=== PATIENT | female | born 1955 | race Native Hawaiian/Other Pacific Islander ===

== ENCOUNTER 2019-06-26 12:57 | Outpatient (CLI) | payer OTHER | END 2019-06-26 21:29 | disposition home or self-care (01) | LOC: US 12:57 | DX: N18.3 Chronic kidney disease, stage 3 (moderate) (principal) ==

== ENCOUNTER 2021-03-29 13:43 | Outpatient (CLI) | payer OTHER | END 2021-03-29 21:46 | disposition home or self-care (01) | LOC: RAD 13:43 | PROVIDERS: ATTEND Physician Assistant | DX: M25.551 Pain in right hip (principal) ==

== ENCOUNTER 2021-05-07 08:08 | Outpatient (CLI) | payer OTHER ==
[2021-05-07 08:28] LABS: PLATELET COUNT 265 K/uL (152-353)
== END 2021-05-07 19:16 | disposition home or self-care (01) ==
LOC: RAD 08:08
PROVIDERS: ATTEND Physician Assistant
DX: R10.2 Pelvic and perineal pain (principal); M54.5 Low back pain; N18.31 Chronic kidney disease, stage 3a; E11.22 Type 2 diabetes mellitus with diabetic chronic kidney disease
CPT/HCPCS: 36415; 80053; 81000; 82330; 82570; 83036; 83735; 83970; 84100; 84155; 84439; 84443; 85027

== ENCOUNTER 2021-08-27 08:02 | Outpatient (CLI) | payer OTHER ==
[2021-08-27 08:22] LABS: PLATELET COUNT 254 K/uL (152-353)
[2021-08-27 09:13] LABS: POTASSIUM 4.7 mmol/L (3.6-5.2)
== END 2021-08-27 22:59 | disposition home or self-care (01) ==
LOC: LABW 08:02
PROVIDERS: ATTEND Internal Medicine
DX: N18.31 Chronic kidney disease, stage 3a (principal); E11.22 Type 2 diabetes mellitus with diabetic chronic kidney disease
CPT/HCPCS: 36415; 80053; 81000; 82330; 82570; 83036; 83735; 83970; 84100; 84155; 84439; 84443; 85027

== ENCOUNTER 2021-11-19 08:05 | Outpatient (CLI) | payer OTHER | END 2021-11-19 20:47 | disposition home or self-care (01) | LOC: LABW 08:05 | PROVIDERS: ATTEND Internal Medicine | DX: N18.31 Chronic kidney disease, stage 3a (principal); E11.9 Type 2 diabetes mellitus without complications | CPT/HCPCS: 36415; 82330; 82570; 83036; 83735; 83970; 84100; 84156 ==

== ENCOUNTER 2022-04-05 09:11 | Outpatient (CLI) | payer OTHER ==
[2022-04-05 09:35] LABS: PLATELET COUNT 247 K/uL (152-353)
[2022-04-05 10:58] LABS: POTASSIUM 5.3 mmol/L (3.6-5.2)
== END 2022-04-05 21:34 | disposition home or self-care (01) ==
LOC: LABW 09:11
PROVIDERS: ATTEND Internal Medicine
DX: N18.31 Chronic kidney disease, stage 3a (principal); R82.998 Other abnormal findings in urine
CPT/HCPCS: 36415; 80053; 81002; 81015; 82043; 82306; 82330; 83735; 83970; 84100; 85027; 87086; 87088

== ENCOUNTER 2022-06-27 08:06 | Outpatient (CLI) | payer OTHER ==
[2022-06-27 08:29] LABS: PLATELET COUNT 237 K/uL (152-353)
== END 2022-06-27 19:37 | disposition home or self-care (01) ==
LOC: LABW 08:06
PROVIDERS: ATTEND Internal Medicine
DX: E11.22 Type 2 diabetes mellitus with diabetic chronic kidney disease (principal); N18.31 Chronic kidney disease, stage 3a
CPT/HCPCS: 36415; 80053; 82330; 82570; 83036; 83735; 83970; 84100; 84156; 84439; 84443; 85027

== ENCOUNTER 2022-09-23 08:35 | Outpatient (CLI) | payer OTHER ==
[2022-09-23 09:08] LABS: PLATELET COUNT 253 K/uL (152-353)
[2022-09-23 09:28] LABS: POTASSIUM 4.2 mmol/L (3.6-5.2)
== END 2022-09-23 19:50 | disposition home or self-care (01) ==
LOC: LABW 08:35
PROVIDERS: ATTEND Internal Medicine
DX: E11.22 Type 2 diabetes mellitus with diabetic chronic kidney disease (principal); N18.31 Chronic kidney disease, stage 3a
CPT/HCPCS: 36415; 80053; 82330; 82570; 83036; 83735; 83970; 84100; 84156; 84439; 84443; 85027

== ENCOUNTER 2023-01-31 07:35 | Outpatient (CLI) | payer OTHER ==
[2023-01-31 07:58] LABS: PLATELET COUNT 245 K/uL (152-353)
[2023-01-31 08:34] LABS: POTASSIUM 5.2 mmol/L (3.6-5.2)
== END 2023-01-31 18:52 | disposition home or self-care (01) ==
LOC: LABW 07:35
PROVIDERS: ATTEND Internal Medicine
DX: E11.22 Type 2 diabetes mellitus with diabetic chronic kidney disease (principal); N18.31 Chronic kidney disease, stage 3a; D63.1 Anemia in chronic kidney disease
CPT/HCPCS: 36415; 80053; 81002; 82043; 82306; 82330; 82570; 82607; 82728; 82746; 83036; 83540; 83550; 83735; 83970; 84100; 84156; 84439; 84443; 85027

== ENCOUNTER 2023-04-14 09:08 | Outpatient (CLI) | payer OTHER | END 2023-04-14 18:58 | disposition home or self-care (01) | LOC: RAD 09:08 | PROVIDERS: ATTEND Internal Medicine | DX: N95.8 Other specified menopausal and perimenopausal disorders (principal) ==